=== PATIENT | female | born 1985 | race American Indian/Alaskan Native ===

== ENCOUNTER 2018-06-08 09:10 | Day surgery (SDC) | payer MEDICAID ==
[~2018-06-08 09:10] MED LIST: NACL 0.9% 1000 ML 1,000 ML IV SCH
--- NOTE | 2018-06-08 10:27 | Anesthesia Day of Surgery ---
Anesthesia Day of Surgery - Day of Surgery Patient Examined: Yes Patient H&P Reviewed: Yes Patient is NPO: Yes
--- NOTE | 2018-06-08 10:28 | Anesthesia Consultation ---
Anesthesia Consult and Med Hx - Airway Anesthetic Teeth Evaluation: Good ROM Head & Neck: Adequate Mental/Hyoid Distance: Adequate Mallampati Class: Class III Intubation Access Assessment: Probably Good - Pulmonary Exam CTA: Yes - Cardiac Exam Cardiac Exam: No Murmur - Pre-Operative Health Status ASA Pre-Surgery Classification: ASA2 Proposed Anesthetic Plan: MAC - Pulmonary Hx Smoking: No - Cardiovascular System Hx Hypertension: Yes - Gastrointestinal Hx Ulcer: Yes Hx Gastroesophageal Reflux Disease: Yes - Other Systems Hx Obesity: Yes
[2018-06-08] MEDS ORDERED: VERSED ONE (11:16)
[2018-06-08] MEDS ORDERED: DIPRIVAN 10 MG/ML IV ONE (11:16)
--- NOTE | 2018-06-08 11:50 | Short Stay Summary ---
Short Stay Documentation Date of service: 06/08/18 Narrative H&P: Pt is a 32 yo female who presents for egd 2/2 abdominal pain/dyspepsia. Pt has had chronic abdominal pain for months. Reports chronic reflux sx's. Denies dysphagia or weight loss. - History Past Medical History: other (see H&P in chart) Past Surgical History: hernia repair Social history: no significant social history - Allergies and Medications Current Medications: Allergies No Known Allergies Allergy (Verified 06/06/18 11:09) Home Medications Medication Instructions Recorded Confirmed Last Taken Type Protonix 1 tab PO DAILY 06/08/18 06/08/18 06/07/18 History Active Medications Sodium Chloride (Nacl 0.9% 1000 Ml) 1,000 mls @ 50 mls/hr IV DIRECT ELLA Last Admin: 06/08/18 09:53 Dose: 50 mls/hr Documented by: - Physical exam General appearance: no acute distress, obese Lungs: Clear to auscultation Heart: Regular rate, Normal S1, Normal S2 Gastrointestinal: normoactive bowel sounds - Brief post op/procedure progress note Date of procedure: 06/08/18 Pre-op diagnosis: abdominal pain/dyspepsia Post-op diagnosis: same Procedure: EGD Anesthesia: MAC Findings: normal upper endoscopy Surgeon: KONG SOTELO Estimated blood loss: none Pathology: none Condition: stable - Disposition Condition at discharge: Good Disposition: DC-01 TO HOME OR SELFCARE Short Stay Discharge Plan Follow up with: FOX INTERIANO [Other] - 7 Days
--- NOTE | 2018-06-08 11:54 | Operative Report ---
Operative Report Operative Report: Esophagogastroduodenoscopy Procedure Note Date of procedure: 06/08/2018 Endoscopist: Adrian Wallace Pre-op diagnosis/indication: Dyspepsia, abdominal pain Post-op diagnosis: Normal upper endoscopy MEDICATIONS: MAC COMPLICATIONS: No immediate complications ESTIMATED BLOOD LOSS:None DESCRIPTION OF PROCEDURE: After consent was obtained, the patient was placed in the left lateral decubitis position. The fujinon endoscope was inserted into the patient's mouth under direct vision and advanced to the 2nd portion of the duodenum without difficulty. The patient tolerated the procedure well. The views of the mucosa were good. The patient's vital signs were monitored continuously throughout the procedure. FINDINGS: The esophagus appeared normal. The stomach appeared normal. The duodenum appeared normal. IMPRESSION: 1. Normal upper endoscopy RECOMMENDATIONS: -continue current medications -return to GI clinic as previously scheduled
[2018-06-08 12:12] VITALS: BP 115/65
== END 2018-06-08 09:11 | disposition home or self-care (01) ==
LOC: GIO 09:10
PROVIDERS: ATTEND Internal Medicine Gastroenterology
DX: R10.13 Epigastric pain (principal); I10 Essential (primary) hypertension; K21.9 Gastro-esophageal reflux disease without esophagitis; Z90.49 Acquired absence of other specified parts of digestive tract; E66.9 Obesity, unspecified; Z68.33 Body mass index [BMI] 33.0-33.9, adult; Z98.51 Tubal ligation status; Z87.898 Personal history of other specified conditions; Z79.899 Other long term (current) drug therapy; Z98.891 History of uterine scar from previous surgery
CPT/HCPCS: 43235; 81025; J2704; J7030; J2250